=== PATIENT | male | born 1970 | race Caucasian/White ===

== ENCOUNTER 2016-04-24 19:34 | Observation (INO) | payer MEDICAID, OTHER ==
[~2016-04-24] VITALS: Ht 180.3 cm; Wt 98.0 kg
[~2016-04-24 19:34] MED LIST: ATORVASTATIN CA80 MG PO; AZULFIDINE500 M1 PO; CARAFATE1 GM PO; COUMADIN7.5 MG PO; DOCUSATE SODIU100 M4 PO; FUROSEMIDE20 MG PO; ISONIAZID300 M1 PO; KLOR-CON M1010 MEQ PO; LASIX80 MG PO; LEVOTHYROXIN0.025 M1 PO; NORCO 10/325 MG1 TAB PO; NORCO 325 MG-51 TAB PO; PREDNISONE20 M1 PO; RANITIDINE 150150 MG PO; SYNTHROID0.025 MG PO
[2016-04-24 19:36] VITALS: BP 119/79
--- NOTE | 2016-04-24 21:09 | NUR ---
PT TAKEN TO BED 3
--- NOTE | 2016-04-24 21:21 | NUR ---
Dr. Keane evaluating patient at bedside.
[2016-04-24] MEDS ORDERED: LORazepam 2 MG/ML VIAL IVP ONE (21:30)
[2016-04-24] MEDS ORDERED: ASPIRIN 81 MG TAB.CHEW PO ONE (21:30)
[2016-04-24] MEDS ORDERED: NACL 0.9% 1,000 ML IV ONE (21:30)
--- NOTE | 2016-04-24 21:30 | NUR ---
PATIENT PRESENTS TO ED WITH CHEST PAIN X3DAYS . PT STATES THE PAIN DOES NOT RADIATE ANYWHERE . DENIES VOMITING; SKIN IS PINK/WARM/DRY; AAOX4 WITH EVEN AND STEADY GAIT; LUNGS CLEAR BL; HR SINUS TACHY; PT DENIES ANY FEVER, SOB, OR COUGH AT THIS TIME; PATIENT STATES PAIN OF 8/10 AT THIS TIME; VSS; PATIENT POSITIONED FOR COMFORT; HOB ELEVATED; BEDRAILS UP X2; BED DOWN. ER MD MADE AWARE OF PT STATUS.
--- NOTE | 2016-04-24 21:48 | NUR ---
X-Ray at bedside.
--- NOTE | 2016-04-24 22:40 | NUR ---
PT REFUSING TO GIVE URINE SAMPLE AND REFUSING STRAIGHT CATHETERIZATION
[2016-04-24] MEDS ORDERED: HYDROcodone/APAP 5/325 MG 1 TAB TAB PO PRN (22:45)
[2016-04-24] MEDS ORDERED: ALBUTEROL 0.083% 2.5 MG/3 ML NEBU INH PRN (22:45)
[2016-04-24] MEDS ORDERED: FUROSEMIDE 40 MG/4 ML VIAL IVP ONE (22:45)
[2016-04-24] MEDS ORDERED: ONDANSETRON 4 MG/2 ML VIAL IVP PRN (22:45)
[2016-04-24] MEDS ORDERED: LORazepam 2 MG/ML VIAL IVP PRN (22:45)
--- NOTE | 2016-04-24 23:34 | NUR ---
Patient will be admitted to care of DR. HEATH AND DR. ALAMO. Admited to TELE. Will go to room 106A. Belongings list completed. Report to PENNY BRICEÑO. TRANSFER OF CARE AT THIS TIME
--- NOTE | 2016-04-24 23:40 | NUR ---
ADMITTED 45 YEAR OLD PT FROM ER. PT AOX4. PT HAS IV TO LEFT WRIST 20G; ASYMPTOMATIC, PATENT AND INTACT. PT UNCOOPERATIVE. PT REFUSES TO GIVE URINE SAMPLE. PT REFUSES SCDS. PT HAS A HOUSE ARREST ALARM ON LEFT FOOT. PT'S SKIN IS INTACT. PT'S VS ARE STABLE. HEART MONITOR ATTACHED TO PT. ORIENTED PT TO ROOM AND SURROUNDINGS AND USE OF CALL LIGHT. EXPLAINED PLAN OF CARE TO PT. CALL LIGHT WITHIN REACH. WILL CONTINUE TO MONITOR PT.
[2016-04-25] VITALS: BP 117/76
--- NOTE | 2016-04-25 00:20 | NUR ---
URINE AND MRSA COLLECTED AND SENT TO LAB, WILL CONTINUE TO MONITOR PT.
--- NOTE | 2016-04-25 00:35 | NUR ---
CALLED DR. CALLY BANUELOS WHO IS COVERING FOR DR. HEATH TO NOTIFY HIM OF PT REQUESTING MORPHINE FOR PAIN. DR. ALAMO GAVE ME ORDERS FOR MORPHINE 2 MG IVP Q6H FOR MODERATED PAIN. WILL FOLLOW UP ON ORDERS.
[2016-04-25] MEDS ORDERED: MORPHINE SULFATE 2 MG/ML SYR IVP PRN (00:40)
--- NOTE | 2016-04-25 01:15 | NUR ---
CHARGE MANAGER AT BEDSIDE TO DRAW BLOOD BUT PT REFUSES. WILL CONTINUE TO MONITOR PT.
--- NOTE | 2016-04-25 01:57 | NUR ---
PT STILL REFUSES IV FLUIDS AT THIS TIME. DR. CALLY BANUELOS AWARE. WILL CONTINUE TO MONITOR PT.
--- NOTE | 2016-04-25 03:16 | NUR ---
PT ACCEPTED TO GET CONNECTED TO IV FLUIDS. CALL LIGHT WITHIN REACH.
--- NOTE | 2016-04-25 03:17 | NUR ---
PT COMPLAINING OF CHEST PAIN 09/20; VS STABLE, WILL MEDICATE ORDERED.
[2016-04-25 04:20] VITALS: BP 117/78
--- NOTE | 2016-04-25 04:25 | NUR ---
SWISS TYPE SCREW MACHINE OPERATOR AT BEDSIDE TO DRAW BLOOD, BUT AGAIN PT REFUSED. WILL CONTINUE TO MONITOR PT.
--- NOTE | 2016-04-25 06:30 | NUR ---
BINDERY MACHINE FEEDER OFFBEARER AT BEDSIDE TO DRAW LABS/TROPONIN, BUT PT REFUSES.
--- NOTE | 2016-04-25 07:15 | NUR ---
RECEIVED CRITICAL LAB VALUE K 2.9. DR. HEATH NOTIFIED; IN TO SEE PT.
--- NOTE | 2016-04-25 07:30 | NUR ---
ENDORSED PT IN STABLE CONDITION TO RN RAMIREZ FOR CONTINUITY OF CARE.
--- NOTE | 2016-04-25 07:40 | NUR ---
RECEIVED REPORT FROM THE RIP/MOULD OPERATOR NURSE NAVARRO AT BEDSIDE FOR CONTINUITY OF CARE. PATIENT IS AWAKE, ALERT, AND ORIENTEDX4. IV TO LEFT WRIST, ASYMPTOMATIC, PATENT AND INTACT. INITIAL ASSESSMENT DONE. PATIENT HAS A HOUSE ARREST ALARM ON LEFT FOOT. PATIENT SKIN IS INTACT. VITALS TAKEN AND WITHIN THE NORMAL LIMIT. SAFETY MEASURED CHECKED AND WILL CONTINUE TO MONITOR. CALL LIGHT WITHIN REACH.
[2016-04-25 08:00] VITALS: BP 129/98
--- NOTE | 2016-04-25 08:09 | NUR ---
PT ON ROOM AIR SPO2 100%. PT DIMINISHED BILATERALLY BUT REFUSED PRN BREATHING TX. PT NOT SOB AND NOT IN RESPIRATORY DISTRESS AT THIS TIME. WILL CONTINUE TO MONITOR.
[2016-04-25] MEDS ORDERED: KCL 20 MEQ/WATER INJ PREMIX 100 ML IV SCH (08:26)
[2016-04-25] MEDS ORDERED: POTASSIUM CHLORIDE 10 MEQ TABER PO SCH (08:26)
[2016-04-25] MEDS ORDERED: LEVOTHYROXINE 0.025 MG TAB PO SCH (08:47)
[2016-04-25] MEDS: ENOXAPARIN 40 MG/0.4 ML SYR SUBQ SCH (08:48)
[2016-04-25] MEDS: FUROSEMIDE 40 MG/4 ML VIAL IVP SCH ×2 (08:49→17:31)
[2016-04-25] MEDS: ATORVASTATIN 80 MG TAB PO SCH (08:50)
[2016-04-25] MEDS: ASPIRIN 81 MG TAB.CHEW PO SCH (08:50)
[2016-04-25] MEDS: ISONIAZID 100 MG TAB PO SCH (08:50)
[2016-04-25] MEDS ORDERED: FUROSEMIDE 40 MG/4 ML VIAL IVP SCH (09:00)
--- NOTE | 2016-04-25 09:00 | NUR ---
PATIENT REFUSED THE POTASSIUM IV, DESPITE DECREASE THE RATE, PATIENT CONTINUE TO DISCONNECT HIMSELF FROM THE IV, DR. RAMOS AWARE.
[2016-04-25] MEDS: HYDROmorphone 1 MG/ML AMP IVP PRN ×3 (09:06→21:49)
--- NOTE | 2016-04-25 10:00 | NUR ---
PATIENT IS ASLEEP, NO S/S OF DISTRESS WILL CONTINUE TO MONITOR.
[2016-04-25] MEDS: PYRIDOXINE 50 MG TAB PO SCH (10:13)
[2016-04-25] MEDS: POTASSIUM CHLORIDE 10 MEQ TABER PO SCH (10:13)
[2016-04-25 12:00] VITALS: BP 104/69
--- NOTE | 2016-04-25 12:00 | NUR ---
VITALS TAKEN AND WITHIN THE NORMAL LIMIT WILL CONTINUE TO MONITOR.
[2016-04-25] MEDS ORDERED: MAG SULF 2000 MG/WATER PREMIX 50 ML IV SCH (13:00)
--- NOTE | 2016-04-25 13:30 | NUR ---
PATIENT REFUSED THE MAG SULF BECAUSE HE STATE IT BURNED TRIED TO DECREASE RATE BUT PATIENT REFUSED AND STATE " WHY ARE YOU DOING THIS TO ME, I REFUSED". PATIENT IS VERY UNCOOPERATIVE.
--- NOTE | 2016-04-25 14:00 | NUR ---
PAGET DR. ONOFRE TO INFORM HIM OF PATIENT REFUSED MG. WAITING FOR CALL BACK.
--- NOTE | 2016-04-25 14:53 | NUR ---
PATIENT IS ASLEEP NO S/S OF DISTRESS. WILL CONTINUE TO MONITOR.
[2016-04-25 16:00] VITALS: BP 122/86
--- NOTE | 2016-04-25 19:35 | NUR ---
REPORT GIVEN TO BAG CUTTER NURSE FOR CONTINUITY OF CARE AT BEDSIDE. PATIENT IN STABLE CONDITION AND ALL NEED MET AT THIS TIME.
--- NOTE | 2016-04-25 19:40 | NUR ---
PT IS CURRENTLY AWAKE ALERT ORIENTED RESTING IN BED WATCHING TV AND SMILING PT STATES,"IM FINE AT THIS TIME."PATIENT IS CURRENTLY WITH HIS SIGNIFICANT OTHER AT BEDSIDE TALKING SHE ATTENDS TO ALL HIS NEEDS.CALL LIGHT WITHIN REACH WILL CONTINUE TO MONITOR.
--- NOTE | 2016-04-25 19:58 | NUR ---
Patient's Plan of Care was discussed and reviewed with SCIENTIFIC DATABASE CURATOR: PAULINO MELCHOR
[2016-04-25 20:00] VITALS: BP 110/76
--- NOTE | 2016-04-25 21:30 | NUR ---
PT IS GOING TO TAKE A SHOWER STATES,"I WILL HELP HIM,HE WANTS ME TO STAY WITH HIM AND HELP HIM I WILL WATCH HIM." PT HAS A BLACK BRACELET NOTED TO HIS LT ANKLE PT STATES HE NEEDS TO HAVE IT AND CANNOT REMOVE IT BECAUSE THE POLICE WILL TRACK HIM DOWN PT SAYS HE CAN SHOWER WITH IT.PT STATES BEFORE GOING TO THE SHOWER PT STATES HE IS IN PAIN AND WANTS TO RECEIVE HIS ATIVAN FOR ANXIETY AND HIS PAIN MEDICATION DILAUDID WELL.PENNY MCHUGH AWARE SHE WILL MEDICATE THE PATIENT.
--- NOTE | 2016-04-25 21:47 | NUR ---
PT TOOK A SHOWER IS NOW BACK IN BED AND HAS BEEN MEDICATED WITH ATIVAN FOR ANXIETY BY PENNY MCHUGH AND WILL ALSO BE MEDICATED WITH DILAUDID FOR PAIN.WILL CONTINUE TO MONITOR.
--- NOTE | 2016-04-25 23:25 | NUR ---
PER ASSISTANT PRODUCTION MANAGER ERIKA SORIA REFUSED TO BE DRAWN AT THIS TIME SHE SAID SHE WILL TRY AGAIN LATER.
--- NOTE | 2016-04-25 23:26 | NUR ---
I WENT TO THE ROOM AND EXPLAINED TO THE PATIENT THAT HE NEEDS TO HAVE LABS DRAWN PT TURNED HIS HEAD THE OPPOSITE WAY AND SAID,"NO NOT RIGHT NOW AND WENT BACK TO SLEEP." PT NON COMPLAINT.
[2016-04-26] VITALS: BP 108/65
[2016-04-26] MEDS: HYDROmorphone 1 MG/ML AMP IVP PRN ×3 (02:03→13:46)
--- NOTE | 2016-04-26 02:30 | NUR ---
PT SLEEPING IN BED SNORING.WILL CONTINUE TO MONITOR.CALL LIGHT WITHIN REACH.
[2016-04-26 04:13] VITALS: BP 119/84
--- NOTE | 2016-04-26 04:40 | NUR ---
PT IS CURRENTLY AWAKE AND VERY DROWSY ASKING CONSTANTLY FOR PAIN MEDICATION DILAUDID AND TOOK OFF HIS TELEMONITOR AND ATTEMPTED TO GET OUT OF BED WITH WALK IS VERY UNSTABLE AND CLUMSY AND KNOCKED OVER HIS SODA ON THE FLOOR AND ALL HIS LINEN AND BLANKETS ARE ON THE FLOOR WELL.PT HAS NO GOWN ON AND IS SAYING THAT HE IS COLD.PT LINEN GOT WET ON THE FLOOR FROM THE SPILLED SODA.PT WAS GIVEN CLEAN LINEN AND GOWN AND HE AGREED TO HAVE TELEMONITOR PLACED BACK.PT WAS GIVEN A SANDWICH EARLIER AND JUICE AND HE SAID HE IS GOING TO EAT IT.THEN PT FELL BACK ASLEEP.WILL CONTINUE TO MONITOR SIGNIFICANT AT BEDSIDE WITH THE PATIENT.
[2016-04-26] MEDS ORDERED: LEVOTHYROXINE 0.025 MG TAB PO SCH (06:30)
--- NOTE | 2016-04-26 06:52 | NUR ---
PT STABLE RESTING IN BED IN NO DISTRESS WILL CONTINUE TO MONITOR.
[2016-04-26] MEDS ORDERED: predniSONE 20 MG TAB PO SCH (07:00)
--- NOTE | 2016-04-26 07:25 | NUR ---
PT STABLE REPORT ENDORSED TO PENNY CHOI HE WILL RESUME CARE OF THE PATIENT.
--- NOTE | 2016-04-26 07:26 | NUR ---
RECEIVED REPORT FROM THE MANAGER NON PROFIT PAULINO BOURNE AT BEDSIDE FOR CONTINUITY OF CARE. PATIENT APPEARED TO BE CALM AWAKE, ALERT AND RESTING WELL IN BED. AAOX4. NO SOB OR SIGN OF RESPIRATORY DISTRESS NOTED AT THIS TIME. INITIAL ASSESSMENT DONE. SKIN INTACT. PATIENT HAS IV TO LEFT WRIST SL, ASYMPTOMATIC, PATENT AND INTACT. PATIENT HAS A HOUSE ARREST ALARM ON LEFT FOOT. VITALS TAKEN AND WITHIN THE NORMAL LIMIT. PLAN OF CARE AND PAIN MANAGEMENT DISCUSSED, PATIENT VERBALIZED UNDERSTANDING. SAFETY MEASURED CHECKED AND WILL CONTINUE TO MONITOR. CALL LIGHT WITHIN REACH.
[2016-04-26 08:00] VITALS: BP 106/72
[2016-04-26] MEDS: ISONIAZID 100 MG TAB PO SCH (08:26)
[2016-04-26] MEDS: PYRIDOXINE 50 MG TAB PO SCH (08:26)
[2016-04-26] MEDS: POTASSIUM CHLORIDE 10 MEQ TABER PO SCH (08:26)
[2016-04-26] MEDS: ASPIRIN 81 MG TAB.CHEW PO SCH (08:26)
[2016-04-26] MEDS: ATORVASTATIN 80 MG TAB PO SCH (08:26)
[2016-04-26] MEDS: FUROSEMIDE 40 MG/4 ML VIAL IVP SCH (08:33)
[2016-04-26] MEDS: ENOXAPARIN 40 MG/0.4 ML SYR SUBQ SCH (08:39)
--- NOTE | 2016-04-26 08:45 | NUR ---
MORNING DUE MEDICATIONS WITH TEACHING GIVEN AND DILAUDID IVP FOR GENERALIZED PAIN 10/10. PATIENT TOLERATED WELL AND VERBALIZED UNDERSTANDING. NO SIGN OF DISTRESS NOTED. PATIENT'S AT BEDSIDE. ALL NEEDS ARE MET. CALL LIGHT WITHIN REACH. WILL CONTINUE TO MONITOR.
--- NOTE | 2016-04-26 09:07 | NUR ---
PATIENT HAS BEEN SCREENED AND CATEGORIZED MODERATE NUTRITION RISK. PATIENT WILL BE SEEN WITHIN 3-5 DAYS OF ADMISSION. 04/27/16-04/29/[address]
[2016-04-26 12:00] VITALS: BP 127/92
--- NOTE | 2016-04-26 12:13 | NUR ---
PATIENT AWAKE SITING AND RESTING WELL IN BED. NO SIGN OF DISTRESS NOTED AT THIS TIME. NO C/O OF DISCOMFORT. AT BEDSIDE WITH PATIENT. CALL LIGHT WITHIN REACH. WILL CONTINUE TO MONITOR.
--- NOTE | 2016-04-26 13:49 | NUR ---
PATIENT REQUESTED MEDICATION FOR GENERALIZED PAIN 10/21. IVP DILAUDID 1MG GIVEN. PATIENT TOLERATED WELL. NO SIGN OF DISTRESS NOTED. AT BEDSIDE. SAFETY MEASURES GIVEN. CALL LIGHT WITHIN REACH. WILL CONTINUE TO MONITOR.
--- NOTE | 2016-04-26 14:47 | NUR ---
DR HEATH IS HERE TO SEE PATIENT AND MD AWARE PATIENT'S ABNORMAL LAB VALUE. POTASSIUM 3.2, MAG 1.6.
[2016-04-26] MEDS ORDERED: MAG SULF 2000 MG/WATER PREMIX 50 ML IV SCH (15:32)
[2016-04-26] MEDS ORDERED: POTASSIUM CHLORIDE 10 MEQ TABER PO SCH (15:33)
--- NOTE | 2016-04-26 15:46 | NUR ---
PATIENT REFUSED TO HAVE MAGNESIUM IVPB INFUSING AT THIS TIME. RISKS AND BENEFITS EXPLAINED AND PATIENT STILL REFUSED, DR HEATH NOTIFIED AND AWARE.
[2016-04-26 16:00] VITALS: BP 127/92
--- NOTE | 2016-04-26 16:24 | NUR ---
ALL DISCHARGE PAPERS SIGNED BY PATIENT. ALL DISCHARGE MEDICATION PRESCRIPTIONS AND FOLLOW UP WITH PCP WITHIN 1 WEEK OF DISCHARGE INSTRUCTIONS GIVEN, PATIENT AND VERBALIZED UNDERSTANDING. ALL IV'S ID BANDS AND TELE MONITOR REMOVED. PATIENT WILL BE DISCHARGED HOME SELF CARE VIA PRIVATE VEHICLE. PATIENT LEFT THE HOSPITAL IN STABLE CONDITION. SKIN INTACT. DENIED ANY PAIN OR DISCOMFORT. DENIED N/V. AMBULATORY. ALL BELONGINGS WITH PATIENT.
[2016-05-26] MEDS ORDERED: RANITIDINE 150150 MG PO (21:10)
[2016-05-26] MEDS ORDERED: MAG-OX400 MG GT (21:10)
[2016-05-28] MEDS ORDERED: LASIX40 MG PO (16:42)
== END 2016-04-26 16:25 | disposition home or self-care (01) ==
LOC: MED 19:34 → MTU 22:51
PROVIDERS: ADMIT Internal Medicine Pulmonary Disease; ATTEND Internal Medicine Pulmonary Disease
DX: I50.23 Acute on chronic systolic (congestive) heart failure (principal); F15.10 Other stimulant abuse, uncomplicated; K50.90 Crohn's disease, unspecified, without complications; E03.9 Hypothyroidism, unspecified; I42.9 Cardiomyopathy, unspecified; I11.0 Hypertensive heart disease with heart failure; E83.42 Hypomagnesemia; E87.6 Hypokalemia; F17.210 Nicotine dependence, cigarettes, uncomplicated; K21.9 Gastro-esophageal reflux disease without esophagitis; R76.11 Nonspecific reaction to tuberculin skin test without active tuberculosis
CPT/HCPCS: 36415; 71010; 80048; 80053; 80305; 82550; 82553; 83735; 83880; 84100; 84484; 85025; 85610; 85730; 87081; 93005; 94664; 94760; 96361; 96365; 96366; 96372; 96375; 96376; 99285; C1758; G0378; J1170; J1650; J1940; J2060; J2270; J3475; J3480; J7030; J7512; Q0092

== ENCOUNTER 2016-05-01 08:46 | Inpatient (IN) | payer OTHER ==
[~2016-05-01] VITALS: Ht 180.3 cm; Wt 89.8 kg
--- NOTE | 2016-05-01 08:49 | NUR ---
Patient ambulated to bed 2. RN evaluating patient while EKG is completed at bedside.
[2016-05-01 08:51] VITALS: BP 129/88
[2016-05-01] MEDS ORDERED: NACL 0.9% 500 ML IV ONE (08:55)
[2016-05-01] MEDS ORDERED: ASPIRIN 81 MG TAB.CHEW PO ONE (08:55)
--- NOTE | 2016-05-01 09:13 | NUR ---
PT PRESENTS TO ER W/C/O CHEST PAIN SINCE YESTERDAY AT 1700. HX CROHN'S, HYPOTHYROIDISM, CHF. PT STATES HE HAD 3 WA'S 8 YEARS AGO. DENIES V/D SKIN IS PINK/WARM/DRY; AAOX4 WITH EVEN AND STEADY GAIT; LUNGS CLEAR BL; HR EVEN AND REGULAR; PT DENIES ANY FEVER AT THIS TIME; PATIENT STATES PAIN OF 10/10 AT THIS TIME; VSS; PATIENT POSITIONED FOR COMFORT; HOB ELEVATED; BEDRAILS UP X2; BED DOWN. ER MD MADE AWARE OF PT STATUS.
[2016-05-01] MEDS ORDERED: MORPHINE SULFATE 4 MG/ML SYR IVP ONE (09:30)
[2016-05-01] MEDS ORDERED: FUROSEMIDE 40 MG/4 ML VIAL IVP ONE (09:30)
--- NOTE | 2016-05-01 09:45 | NUR ---
PT STATED OF CHEST PAIN GOING DOWN. PT COMFORTABLE, BREATHING NORMALLY.
--- NOTE | 2016-05-01 10:09 | NUR ---
PT REFUSED TO HAVE ORR CATHETER INSERTION, RISKS AND BENEFITS EXPLAINED.
--- NOTE | 2016-05-01 10:29 | NUR ---
PT DIANE, SPOKE WITH HIS DAUGHTER, DENIES PAIN AT THIS TIME.
[2016-05-01] MEDS ORDERED: ENOXAPARIN 40 MG/0.4 ML SYR SUBQ ONE (10:40)
[2016-05-01] MEDS ORDERED: NITROGLYCERIN 2% 1 GM PKT TP ONE (10:40)
--- NOTE | 2016-05-01 10:45 | NUR ---
Patient will be admitted to care of DR. DE LOS SANTOS,Admited to TELE . Will go to room 117. Belongings list completed. Report to PENNY BERUMEN.
--- NOTE | 2016-05-01 11:09 | NUR ---
TRANSFFERED PT TO [place] RN AT BEDSIDE.
[2016-05-01 11:15] VITALS: BP 125/87
--- NOTE | 2016-05-01 11:15 | NUR ---
ADMITTED 45 YEAR OLD MALE FROM ER [facility]IA [facility] WITH A DX OF ACUTE CORONARY SYNDROME. PT IS AMBULATORY, AAO X4, SKIN INTACT, IV ON LEFT AC FLUSHED PATENT AND INTACT, VITALS STABLE, NO S/S OF RESPIRATORY DISTRESS OR DISCOMFORT AT THIS TIME. ORIENTED PT IN THE ROOM AND USE OF CALL LIGHT, MRSA COLLECTED, SAFETY/FALL PRECAUTION ENFORCED, CALL LIGHT WITHIN REACH, WILL CONTINUE TO MONITOR.
[2016-05-01 12:00] VITALS: BP 123/88
[2016-05-01] MEDS ORDERED: PNEUMOCOCCAL VACCINE 23 MCG/0.5 ML VIAL IMVAC SCH (12:00)
--- NOTE | 2016-05-01 12:06 | NUR ---
PATIENT HAS BEEN SCREENED AND CATEGORIZED MODERATE NUTRITION RISK. PATIENT WILL BE SEEN WITHIN 3-5 DAYS OF ADMISSION. 05/04/16 - 05/06/16 [facility]; [place], RD
[2016-05-01] MEDS ORDERED: ACETAMINOPHEN 325 MG TAB PO PRN (12:20)
[2016-05-01] MEDS ORDERED: ONDANSETRON 4 MG/2 ML VIAL IVP PRN (12:20)
[2016-05-01] MEDS ORDERED: ALBUTEROL 0.083% 2.5 MG/3 ML NEBU INH PRN (12:20)
[2016-05-01] MEDS: MORPHINE SULFATE 2 MG/ML SYR IVP PRN ×3 (13:01→20:45)
[2016-05-01] MEDS: IPRATROPIUM 0.02% 0.5 MG/2.5 ML NEBU INH SCH ×2 (13:04→19:36)
[2016-05-01] MEDS: ALBUTEROL 0.083% 2.5 MG/3 ML NEBU INH SCH ×2 (13:05→19:36)
--- NOTE | 2016-05-01 13:15 | NUR ---
RT AT BEDSIDE GIVING BREATHING TX, PT COMPLAIN OF 9/10 CHEST PAIN, PRN MORPHINE GIVEN, CALL LIGHT WITHIN REACH, WILL CONTINUE TO MONITOR.
--- NOTE | 2016-05-01 15:05 | NUR ---
PT IS SLEEPING AT THIS TIME, NO S/S OF RESPIRATORY DISTRESS OR DISCOMFORT NOTED, CALL LIGHT WITHIN REACH, WILL CONTINUE TO MONITOR.
[2016-05-01 16:00] VITALS: BP 128/88
--- NOTE | 2016-05-01 17:50 | NUR ---
PT IS RESTING ON BED WATCHING TV, NO S/S OF RESPIRATORY DISTRESS OR DISCOMFORT NOTED, ALL NEEDS MET AT THIS TIME, CALL LIGHT WITHIN REACH, WILL CONTINUE TO MONITOR.
--- NOTE | 2016-05-01 19:11 | NUR ---
RECEIVED PT REPORT FROM ATA FRANCIS AT BEDSIDE FOR PT CONTINUITY OF CARE. PT NOTED STABLE, NO S/S OF DISTRESS.
--- NOTE | 2016-05-01 19:12 | NUR ---
ENDORSED PT TO PENNY GAFFNEY FOR CONTINUITY OF CARE. PT IS STABLE AT THIS TIME.
--- NOTE | 2016-05-01 19:40 | NUR ---
PT RECEIVING BREATHING TREATMENT AT THIS TIME. NO ACUTE RESPIRATORY DISTRESS NOTED.
[2016-05-01 20:00] VITALS: BP 133/93
--- NOTE | 2016-05-01 20:00 | NUR ---
PER RT AT PT BEDSIDE, PT IS REQUESTING TO BE NOT FULL CODE.
--- NOTE | 2016-05-01 20:04 | NUR ---
SHIFT ASSESSMENT AT THIS TIME. PT IS A/O X3. VS ARE STABLE, PT ON ROOM AIR WITH OXYGEN SATURATION AT 97%, PT STATES TO FEEL SOB. PLACED PT ON 2L NASAL CANNULA, NOTED OXYGEN SATURATION AT 99%. BP IS 133/93, HR 115, TEMP 98.5F, RR 24, AND PT C.O. PAIN /. WILL SEE MEDICATION eMAR FOR PAIN MEDICATION. LUNG SOUNDS ARE DIMINISHED, BOWEL SOUND ACTIVE. SKIN IS INTACT. PT HAS IV ACCESS TO LEFT AC #22G, PATENT AND INTACT. PER RT EARLIER DISCUSSED PT WITH CODE STATUS, PT CHANGED HIS MIND AT THIS TIME, STILL WANTS TO REMAIN FULL CODE. DISCUSSED WITH PT PLAN OF CARE, ABLE TO VERBALIZE UNDERSTANDING. CALL LIGHT WITHIN REACH. WILL MONITOR CLOSELY. SAFETY PRECAUTIONS ARE IMPLEMENTED. PT FAMILY MEMBER AT BEDSIDE. CALL LIGHT WITHIN EASY REACH.
--- NOTE | 2016-05-01 20:15 | NUR ---
NOTIFIED TELE MONITOR PT HAS HX OF PREVIOUS BLUE CODES, WILL KEEP CLOSE EYE ON PT.
[2016-05-01] MEDS: CARVEDILOL 3.125 MG TAB PO SCH (20:46)
[2016-05-01] MEDS ORDERED: SIMVASTATIN 20 MG TAB PO SCH (21:00)
[2016-05-01] MEDS ORDERED: SIMVASTATIN 40 MG TAB PO SCH (21:00)
--- NOTE | 2016-05-01 23:27 | NUR ---
PT SITTING UP IN BED DANGLING FEET. NO ACUTE RESPIRATORY DISTRESS, PT REMOVED NASAL CANNULA. ATTEMPT TO PUT BACK ON, PT REFUSED. CHECK OXYGEN SATURATION AT THIS TIME, NOTED AT 97% ON ROOM AIR.
[2016-05-02] VITALS (7 sets, daily range): BP systolic 105–129; BP diastolic 61–96
[2016-05-02] MEDS: ZOLPIDEM 5 MG TAB PO PRN (00:07)
--- NOTE | 2016-05-02 00:07 | NUR ---
PROVIDED PT WITH SLEEPING MEDICATION PER REQUEST, PER PT UNABLE TO SLEEP. VS REMAIN STABLE. OXYGEN SATURATION AT 98% ON ROOM AIR, PT STILL REFUSES NASAL CANNULA. NO ACUTE DISTRESS NOTED.
[2016-05-02] MEDS: ALBUTEROL 0.083% 2.5 MG/3 ML NEBU INH SCH ×4 (01:00→19:00)
[2016-05-02] MEDS: IPRATROPIUM 0.02% 0.5 MG/2.5 ML NEBU INH SCH ×4 (01:00→19:00)
--- NOTE | 2016-05-02 01:20 | NUR ---
PT NOTED SLEEPING, NO ACUTE DISTRESS OR RESPIRATORY DISTRESS.
--- NOTE | 2016-05-02 01:23 | NUR ---
0105 PT IS SLEEPING. RN GAVE AMBIEN FOR SLEEP. RN WILL CALL IF PT WANTS AN HHNTX
--- NOTE | 2016-05-02 01:48 | NUR ---
PT REMAINS ASLEEP, NO RESPIRATORY DISTRESS NOTED. CALL LIGHT WITHIN REACH.
[2016-05-02] MEDS: MORPHINE SULFATE 2 MG/ML SYR IVP PRN ×5 (03:57→21:20)
--- NOTE | 2016-05-02 03:57 | NUR ---
VSS, PT STILL REFUSING NASAL CANNULA, O2 SAT IS 100% ON ROOM AIR. WILL PROVIDE PT WITH PAIN MEDICATION.
[2016-05-02] MEDS: LEVOTHYROXINE 0.025 MG TAB PO SCH (05:51)
[2016-05-02] MEDS: predniSONE 20 MG TAB PO SCH (05:51)
--- NOTE | 2016-05-02 05:51 | NUR ---
PT ABLE TO WAKE UP AND TAKE AM MEDICATION. NO DISTRESS OR RESPIRATORY DISTRESS NOTED.
--- NOTE | 2016-05-02 07:02 | NUR ---
ENDORSED PT TO ATA RN IN STABLE CONDITION FOR CONTINUITY OF CARE.
--- NOTE | 2016-05-02 07:05 | NUR ---
RECEIVED REPORT FROM PENNY GAFFNEY. PT IS AWAKE, SITTING AT THE EDGE OF THE BED WATCHING TV AAOX4, SKIN INTACT, IV ON LEFT AC, FLUSHED PATENT AND INTACT, ON SALINE LOCK, INITIAL ASSESSMENT DONE, NO S/S OF RESPIRATORY DISTRESS NOTED, PT COMPLAIN OF CHEST PAIN, WILL ADMINISTER PRN PAIN MEDICATION, DISCUSSED PLAN OF CARE, PT VERBALIZED UNDERSTANDING, SAFETY/FALL PRECAUTION ENFORCED, CALL LIGHT WITHIN REACH, WILL CONTINUE TO MONITOR.
--- NOTE | 2016-05-02 07:07 | NUR ---
RECEIVED PT CRITICAL LAB FOR POTASSIUM IS 2.9, DR. DE LOS SANTOS PAGED AT THIS TIME TO NOTIFY
--- NOTE | 2016-05-02 07:09 | NUR ---
DR. DE LOS SANTOS AWARE OF PT POTASSIUM 2.9, NEW ORDER RECEIVED.
[2016-05-02] MEDS: CARVEDILOL 3.125 MG TAB PO SCH ×2 (08:24→21:21)
[2016-05-02] MEDS: ASPIRIN 325 MG TAB PO SCH (08:25)
[2016-05-02] MEDS: ATORVASTATIN 80 MG TAB PO SCH (08:25)
[2016-05-02] MEDS: FUROSEMIDE 40 MG/4 ML VIAL IVP SCH (08:26)
[2016-05-02] MEDS: ENOXAPARIN 40 MG/0.4 ML SYR SUBQ SCH (08:27)
--- NOTE | 2016-05-02 08:30 | NUR ---
DUE MEDS GIVEN, PT TOLERATED WELL, CALL LIGHT WITHIN REACH. WILL CONTINUE TO MONITOR.
[2016-05-02] MEDS ORDERED: POTASSIUM CHLORIDE 10 MEQ TABER PO SCH ×2 (09:00→13:00)
--- NOTE | 2016-05-02 09:08 | NUR ---
PT COMPLAINED 8/10 CHEST PAIN. PRN MORPHINE GIVEN. NO S/S OF RESPIRATORY DISTRESS NOTED. WILL REASSESS, CALL LIGHT WITHIN REACH. WILL CONTINUE TO MONITOR.
--- NOTE | 2016-05-02 10:09 | NUR ---
PT REFUSES TO WEAR OXYGEN
--- NOTE | 2016-05-02 11:54 | NUR ---
PT IS AT RESTROOM AT THIS TIME, ALL NEEDS MET, NO S/S OF RESPIRATORY DISTRESS OR DISCOMFORT NOTED, WILL CONTINUE TO MONITOR.
--- NOTE | 2016-05-02 13:00 | NUR ---
PT REFUSES [facility] WANTS PAIN MEDS RN ATA INFORMED Addendum: 05/02/16 at 1305 by Maye Henry RT OLACED 3L KieraC PT REMOVED Addendum: 05/02/16 at 1306 by Maye Henry RT PLACED
--- NOTE | 2016-05-02 13:11 | NUR ---
PT COMPLAIN OF 8/10 CHEST AND ABDOMINAL PAIN, PRN MORPHINE GIVEN ORDERED. WILL REASSESS, NO S/S OF RESPIRATORY DISTRESS NOTED, CALL LIGHT WITHIN REACH, WILL CONTINUE TO MONITOR.
--- NOTE | 2016-05-02 15:37 | NUR ---
PT IS AWAKE, SITTING AT THE EDGE OF THE BED USING HIS CELL PHONE. NO S/S OF RESPIRATORY DISTRESS, CALL LIGHT WITHIN REACH. WILL CONTINUE TO MONITOR
--- NOTE | 2016-05-02 17:38 | NUR ---
PT COMPLAINED 9/10 CHEST PAIN, MORPHINE WAS GIVEN ORDERED. WILL REASSESS, NO S/S OF RESPIRATORY DISTRESS NOTED, CALL LIGHT WITHIN REACH. WILL CONTINUE TO MONITOR.
--- NOTE | 2016-05-02 19:10 | NUR ---
PT WAS ENDORSED TO RN. TAYO FOR CONTINUITY OF CARE IN STABLE CONDITION.
--- NOTE | 2016-05-02 19:15 | NUR ---
RECEIVED PT FROM BRANDT FRANCIS PT IS AAOX4 AMBULATORY ON TELEMETRY SR BBB AAO FOR ALL OVER HIS BODY, HL ON LEFT AC PATENT INITIAL ASSESSMENT DONE
--- NOTE | 2016-05-02 22:00 | NUR ---
AFTER PAIN MEDIC GIVEN PT WATCH TV DENIES ANY PAIN. ON TELEMETRY SR BBB
[2016-05-03] VITALS: BP 102/74
--- NOTE | 2016-05-03 | NUR ---
PT A ASK FOR FOOD TO EAT HE IS ASSISTED
[2016-05-03] MEDS: ZOLPIDEM 5 MG TAB PO PRN (00:40)
[2016-05-03] MEDS: IPRATROPIUM 0.02% 0.5 MG/2.5 ML NEBU INH SCH ×2 (01:00→07:00)
[2016-05-03] MEDS: MORPHINE SULFATE 2 MG/ML SYR IVP PRN ×3 (01:19→09:50)
--- NOTE | 2016-05-03 01:30 | NUR ---
PT SLEEPING QUIET NOT DISTRESS NOTED ON TELEMETRY SR BBB
[2016-05-03 04:00] VITALS: BP 117/76
--- NOTE | 2016-05-03 04:00 | NUR ---
SPONGE BATH GIVEN , LINEN CHANGED ON TELEMETRY SR SLEEPING ON AND OFF
[2016-05-03] MEDS: LEVOTHYROXINE 0.025 MG TAB PO SCH (05:12)
[2016-05-03] MEDS: predniSONE 20 MG TAB PO SCH (05:12)
--- NOTE | 2016-05-03 06:00 | NUR ---
AFTERKPAIN MEDIC GIVEN PT SLEEP QUIET NOT DISTRESS NOTED
[2016-05-03] MEDS: ALBUTEROL 0.083% 2.5 MG/3 ML NEBU INH SCH (07:00)
--- NOTE | 2016-05-03 07:00 | NUR ---
PT HAS REFUSED BREATHING TX B\S ARE CLEAR AND NO SIGNS OF DISTRESS NOTED AT THIS TIME, RN TAYO NOTIFIED. PT WANTS TO EAT.
--- NOTE | 2016-05-03 07:06 | NUR ---
ASSUMED CONTINUITY OF CARE. NO SIGNS AND SYMPTOMS OF ACUTE DISTRESS NOTED. INITIAL ASSESSMENT DONE. NON-COMPLIANT. REFUSED O2 VIA NC AND MOST OF THE TIME OFF FROM SERVICE DIRECTOR. KEEP COMFORTABLE ON BED. EXPLAINED DIAGNOSIS, PLAN OF CARE, PAIN MANAGEMENT TEACHING, USE OF CALL LIGHT/BED/TV/BATHROOM. VERBALIZED UNDERSTANDING. CALL LIGHT WITHIN REACH.
[2016-05-03 08:00] VITALS: BP 107/72
--- NOTE | 2016-05-03 08:56 | NUR ---
DR. DE LOS SANTOS CAME, INFORMED THAT PT. NON-COMPLIANT, REFUSED AM BLOOD DRAW AND REFUSED MOST OF THE TIME TELEMETRY MONITORING.
[2016-05-03] MEDS: CARVEDILOL 3.125 MG TAB PO SCH (09:00)
[2016-05-03] MEDS: FUROSEMIDE 40 MG/4 ML VIAL IVP SCH (09:00)
--- NOTE | 2016-05-03 09:10 | NUR ---
Patient's Plan of Care was discussed and reviewed with SUPERVISOR AGENCY APPOINTMENTS: RICARDO
[2016-05-03] MEDS ORDERED: CARVEDILOL3.125 MG PO (09:26)
[2016-05-03] MEDS ORDERED: ASPIRIN325 M2 PO (09:26)
[2016-05-03] MEDS ORDERED: K-DUR10 MEQ PO (09:27)
[2016-05-03] MEDS ORDERED: LASIX40 MG PO (09:27)
[2016-05-03 09:30] VITALS: BP 102/74
[2016-05-03] MEDS: ATORVASTATIN 80 MG TAB PO SCH (09:34)
[2016-05-03] MEDS: ASPIRIN 325 MG TAB PO SCH (09:34)
[2016-05-03] MEDS: ENOXAPARIN 40 MG/0.4 ML SYR SUBQ SCH (09:35)
--- NOTE | 2016-05-03 11:45 | NUR ---
REFUSED TO SIGN D/C PAPERS, D/C INSTRUCTIONS AND TEACHING, AND REFUSED MD D/C PRESCRIPTION LIST. LEFT AT THE ROOM BY USING BACKDOOR WITHOUT INFORMING ANY STAFF. PAGED EMERGENCY SERVICE WORKER FOR ASSISTANCE. FOUNDPT. ON PARKING LOT AND PT. WAS ABOUT TO DRIVE OWN VEHICLE. STILL REFUSED TO SIGN D/C PAPERS AND REFUSED TO CHECK IV SITE. INFORMED CHARGE NURSE.
--- NOTE | 2016-05-03 11:48 | NUR ---
PAGED DR. DE LOS SANTOS, NEDA AND SPOKE TO PETRA. LEFT MESSAGE AND CALL BACK NUMBER. INFORMED CHARGE NURSE EDELMIRA SUH -PENNY.
--- NOTE | 2016-05-03 13:00 | NUR ---
CHARGE NURSE EDELMIRA JOHNS CALLED KIRILL DE LOS SANTOS FOR PT. IV SITE VERIFICATION.
--- NOTE | 2016-05-03 15:22 | NUR ---
CM NOTE INITIAL REVIEW SENT TO [facility] FAX# [phone] ATTN: TRISTA # [phone]
--- NOTE | 2016-05-03 16:42 | NUR ---
DR. DE LOS SANTOS CALLED BACK, INFORMED THAT PT. LEFT HOSPITAL WITHOUT SIGNING D/C PAPERS, REFUSED MD D/C PRESCRIPTION LIST, AND REFUSED TO CHECK IV SITE. PER. DR. DE LOS SANTOS PT. WAS LEFT AMA AND NOT D/C. INFORMED CHARGE NURSE EDELMIRA JOHNS.
[2016-05-26] MEDS ORDERED: MAG-OX400 MG GT (21:10)
[2016-05-26] MEDS ORDERED: RANITIDINE 150150 MG PO (21:10)
[2016-05-28] MEDS ORDERED: LASIX40 MG PO (16:42)
== END 2016-05-03 11:45 | disposition left against medical advice (07) | DRG 194 ==
LOC: MED 08:46 → MTU 10:38
PROVIDERS: ADMIT Hospitalist; ATTEND Hospitalist
DX: I13.0 Hypertensive heart and chronic kidney disease with heart failure and stage 1 through stage 4 chronic kidney disease, or unspecified chronic kidney disease (principal); K50.90 Crohn's disease, unspecified, without complications; I24.9 Acute ischemic heart disease, unspecified; I50.23 Acute on chronic systolic (congestive) heart failure; N18.9 Chronic kidney disease, unspecified; E03.9 Hypothyroidism, unspecified; F15.90 Other stimulant use, unspecified, uncomplicated; R76.11 Nonspecific reaction to tuberculin skin test without active tuberculosis; Z53.21 Procedure and treatment not carried out due to patient leaving prior to being seen by health care provider; F17.210 Nicotine dependence, cigarettes, uncomplicated; F12.90 Cannabis use, unspecified, uncomplicated; R74.8 Abnormal levels of other serum enzymes

== ENCOUNTER 2016-05-26 20:56 | Inpatient (IN) | payer OTHER ==
[~2016-05-26] VITALS: Ht 180.3 cm; Wt 88.5 kg
[~2016-05-26 20:56] MED LIST changes: +ASPI325T49 PO; +ATOR80TA27 PO; -ATORVASTATIN CA80 MG PO; -AZULFIDINE500 M1 PO; -CARAFATE1 GM PO; +CARV3.122 PO; -COUMADIN7.5 MG PO; -DOCUSATE SODIU100 M4 PO; +FURO-570 PO; -FUROSEMIDE20 MG PO; -ISONIAZID300 M1 PO; -KLOR-CON M1010 MEQ PO; -LASIX80 MG PO; +LEVO0.0236 PO; -LEVOTHYROXIN0.025 M1 PO; -NORCO 10/325 MG1 TAB PO; -NORCO 325 MG-51 TAB PO; +POTA10TA10 PO; +PRED20TA6 PO; -PREDNISONE20 M1 PO; +RANI-451 PO; -RANITIDINE 150150 MG PO; -SYNTHROID0.025 MG PO; +[UNRECOGNIZED DRUG - CODE] PO
[2016-05-26 21:02] VITALS: BP 106/77
[2016-05-26] MEDS ORDERED: RANI-451 PO (21:10)
[2016-05-26] MEDS ORDERED: MAG400 GT (21:10)
--- NOTE | 2016-05-26 21:49 | NUR ---
PT TAKEN TO BED 3
--- NOTE | 2016-05-26 21:57 | NUR ---
45 Y/O M W/C/O CHEST PAIN, N/V AND SOB X 2 DAYS. PT ON END USER CONSULTANT SAT 98% IN RA, TACHY 128. PT STATES HAS A HX OF CHF. ER AWARED.
[2016-05-26] MEDS ORDERED: NITROGLYCERIN 2% 1 GM PKT TP ONE (22:25)
[2016-05-26] MEDS ORDERED: MORPHINE SULFATE 4 MG/ML SYR IVP ONE (22:25)
[2016-05-26] MEDS ORDERED: ASPIRIN 325 MG TAB PO ONE (22:25)
[2016-05-26] MEDS ORDERED: ONDANSETRON 4 MG/2 ML VIAL IVP ONE (22:35)
[2016-05-26] MEDS ORDERED: ONDANSETRON 4 MG/2 ML VIAL ONE (22:41)
[2016-05-26 22:48] LABS: MEAN CORPUSCULAR HEMOGLOBIN 20 pg (27-31); MEAN CORPUSCULAR HGB CONC 29 g/dL (33-37); MEAN CORPUSCULAR VOLUME 68 fL (80-94); PLATELET COUNT (AUTO) 425 K/uL (140-450); RED BLOOD CELL COUNT(AUTO) 4.57 MIL/uL (4.20-6.10); RED CELL DISTRIBUTION WIDTH 16.4 % (11.6-13.7)
[2016-05-26 23:02] LABS: AMPHETAMINE, URINE NEG. ng/ml (NEG <=1000); BARBITURATE, URINE NEG. ng/ml (NEG <=200); BENZODIAZEPINE, URINE NEG. ng/mL (NEG <=200); CANNABINOID, URINE POS. ng/mL (NEG <=50); COCAINE, URINE NEG. ng/mL (NEG <=300); OPIATE, URINE POS. ng/mL (NEG <=2000); PHENCYCLIDINE SCREEN,URINE NEG. ng/mL (NEG <=25)
[2016-05-26 23:04] LABS: CHOL/HDL RATIO 4.6 (1-4.5)
[2016-05-26 23:07] LABS: ALBUMIN 2.8 g/dL (3.4-5.0); CARBON DIOXIDE 29.2 mmol/L (21-32); CREATININE 2.5 mg/dL (0.6-1.3); POTASSIUM 4.2 mmol/L (3.5-5.1); TOTAL BILIRUBIN 1.1 mg/dL (0.0-1.0); TOTAL PROTEIN, SERUM 6.7 g/dL (6.4-8.2)
[2016-05-26 23:12] LABS: CREATINE KINASE MB 1.2 ng/mL (0-3.6); TROPONIN I 0.058 ng/mL (0.00-0.06)
[2016-05-26 23:14] LABS: BAND % (MANUAL) 2 % (0-8); LYMPHOCYTES % (MANUAL) 18 % (20-46); MONOCYTES % (MANUAL) 9 % (5-12); NEUTROPHILS % (MANUAL) 71 (43-65)
--- NOTE | 2016-05-26 23:55 | NUR ---
Dr. Willis evaluating patient at bedside.
[2016-05-27] MEDS ORDERED: FUROSEMIDE 40 MG/4 ML VIAL IVP SCH (00:15)
[2016-05-27] MEDS ORDERED: ACETAMINOPHEN 325 MG TAB PO PRN (00:40)
[2016-05-27] MEDS ORDERED: LORazepam 2 MG/ML VIAL IVP PRN (00:40)
[2016-05-27] MEDS ORDERED: ONDANSETRON 4 MG/2 ML VIAL IVP PRN (00:40)
--- NOTE | 2016-05-27 00:48 | NUR ---
Patient will be admitted to care of DR. OSMAN. Admited to TELEMETRY. Will go to room11 A. Belongings list completed. Report to PENNY BENITEZ.
[2016-05-27] MEDS ORDERED: MORPHINE SULFATE 10 MG/ML SYR IVP ONE (00:55)
--- NOTE | 2016-05-27 01:17 | NUR ---
PT TRASPORTED TO TELEMETRY VIA IKE, TRANSMISSION SUPERVISOR IN BED. ACCOMPANIED BY MARY RN, AND ROMRAIO, EMT. NO S/S OF DISTRESS ON TRASPORT.
[2016-05-27 01:20] VITALS: BP 107/77
--- NOTE | 2016-05-27 01:20 | NUR ---
ADMITTED A 45 M FROM ER, TELE PT. CAME BY IKE. WITH PROBLEM OF CHEST PAIN, SOB, TACHYCARDIA AND VOMITING. AWAKE,ALERT AND ORIENTED X4. AMBULATORY. NO C/O ANY PAIN AT THIS TIME. MEDICATED IN ER PRIOR TO ADMIT TO THE FLOOR. HAS HL ON THE RT FA#[phone]. CLEAR AND PATENT. LT LOWER LEG HAS SCABS FROM OLD SCRATCHES. AND SOME COLD SORES ON THE SIDE OF MOUTH AND RT SIDE OF NOSE. ALMOST DRY. PLAN OF CARE DISCUSSED . CALL LIGHT PLACED WITHIN EASY REACH. WILL CONTINUE TO MONITOR.
--- NOTE | 2016-05-27 03:30 | NUR ---
CALLED ADMITTING FOR PT HAS MONEY TO BE PUT IN THE SAFE.
[2016-05-27 04:34] VITALS: BP 118/79
[2016-05-27] MEDS: HYDROcodone/APAP 5/325 MG 1 TAB TAB PO PRN ×3 (05:27→20:25)
[2016-05-27] MEDS: LEVOTHYROXINE 0.025 MG TAB PO SCH (06:23)
--- NOTE | 2016-05-27 06:55 | NUR ---
CALLED ADMITTING AGAIN FOR PT MONEY NEED TO BE KEPT ON THE SAFE. THEY WILL COME THIS AM.
--- NOTE | 2016-05-27 07:04 | NUR ---
PT INSISTED ON TAKING SHOWER FOR HE SAID SKIN IS ITCHING. PENNY SCOTTMINING MACHINERY ASSEMBLER. MADE AWARE AND PT ABLE TO HAVE SHOWER .
--- NOTE | 2016-05-27 07:15 | NUR ---
ADMITTING PERSON TOGETHER WITH SECURITY CAME AND TOOK MONEY TO SAFE.
--- NOTE | 2016-05-27 07:35 | NUR ---
ALL HOME MEDS BOTTLES TO BE SEND TO PHARMACY. PT AGREED. ENDORSED PT IN STABLE CONDITION TO AM NURSE.
--- NOTE | 2016-05-27 07:36 | NUR ---
RECEIVED REPORT FROM PENNY BENITEZ. PT IS AAOX4. PT ON ROOM AIR WITH NO S/S OF DISTRESS NOTED. IV TO RIGHT FA #[id number], PATENT AND INTACT. EDEMA NOTED TO BLE. NO N/V OR PAIN INDICATED. ALL SAFETY PRECAUTIONS IN PLACE, SIDE RAILSX2, BED IN LOW POSITION, AND CALL LIGHT WITHIN REACH. WILL CONTINUE TO MONITOR.
--- NOTE | 2016-05-27 07:47 | NUR ---
AWAKE AND ALERT RESPONSIVE TO ACQUISITION LEAD VERBAL COMMANDS IN HFW POSITION PATIENT C/O SOB PATIENT ASSESSMENT COMPLETED HHN PRN THERAPY GIVEN AT THIS TIME TOLERATED WELL WITHOUT INCIDENT
[2016-05-27] MEDS: ALBUTEROL 0.083% 2.5 MG/3 ML NEBU IH PRN ×4 (07:49→17:10)
[2016-05-27 08:00] VITALS: BP 119/78
[2016-05-27] MEDS: ENOXAPARIN 40 MG/0.4 ML SYR SUBQ SCH (08:42)
[2016-05-27] MEDS: POTASSIUM CHLORIDE 10 MEQ TABER PO SCH (08:43)
[2016-05-27] MEDS: FUROSEMIDE 40 MG/4 ML VIAL IVP SCH ×2 (08:45→20:20)
[2016-05-27] MEDS: ASPIRIN 325 MG TAB PO SCH (08:45)
[2016-05-27] MEDS ORDERED: ATORVASTATIN 80 MG TAB PO SCH (09:00)
[2016-05-27] MEDS ORDERED: PNEUMOCOCCAL VACCINE 23 MCG/0.5 ML VIAL IMVAC SCH (09:00)
[2016-05-27] MEDS ORDERED: ISONIAZID 100 MG TAB PO SCH (09:00)
[2016-05-27] MEDS ORDERED: INFLUENZA VIRUS VACCINE QUAD 0.5 ML SYR IMVAC SCH (09:00)
[2016-05-27] MEDS ORDERED: CARVEDILOL 3.125 MG TAB PO SCH (09:00)
--- NOTE | 2016-05-27 09:03 | NUR ---
PT TOLERATED MEDS WELL. BP 119//78, HR 115. PT C/O NAUSEA AND ANXIETY. ADMINISTERED ZOFRAN AND ATIVAN ORDERED. WILL CONTINUE TO MONITOR. Addendum: 05/27/16 at 1204 by Aundrea Abreu RN PT REFUSED ISONIAZID, PT STATED HE WAS ALREADY COMPLETED THE TREATMENT.
--- NOTE | 2016-05-27 09:06 | NUR ---
PATIENT HAS BEEN SCREENED AND CATEGORIZED HIGH NUTRITION RISK. PATIENT WILL BE SEEN WITHIN 1-2 DAYS OF ADMISSION. 05/27/16-05/28/[address]
--- NOTE | 2016-05-27 09:30 | NUR ---
RECEIVED REPORT FROM DAY SHIFT RN, PATIENT IS AAOX4 SITTING AT THE SIDE OF THE BED ON ROOM AIR, NO SOB OR SIGN OF DISTRESS AT THIS TIME. SKIN CHECK, PATIENT HAS SCAB TO LOWER LEFT LEG, NOTED 2+ PITTING EDEMA TO BLE. IV TO RFA PATENT AND INTACT, SALINE LOCKED. DISCUSSED PLAN OF CARE WITH PATIENT, PATIENT VERBALIZED UNDERSTANDING, CALL LIGHT WITH WITHIN REACH, WILL CONTINUE TO MONITOR. Addendum: 05/28/16 at 0339 by Claudia Johnson RN WRONG TIME.
--- NOTE | 2016-05-27 09:36 | NUR ---
CM NOTE INITIAL REVIEW FAXED TO [facility] / FAX# [phone], ATTN: [facility] #[phone]
--- NOTE | 2016-05-27 09:41 | NUR ---
REVIEWED CXR IMPRESSION DATED
--- NOTE | 2016-05-27 10:00 | NUR ---
PT SLEEPING, NO DISTRESS NOTED.
[2016-05-27 12:00] VITALS: BP 115/80
--- NOTE | 2016-05-27 12:03 | NUR ---
VSS. WILL CONTINUE TO MONITOR.
--- NOTE | 2016-05-27 12:35 | NUR ---
TALKED TO DR COLUNGA, ALEJANDRA DENNEY ON PT'S CONDITION. UNKNOWN IF DR COLUNGA WILL SEE PT TODAY.
--- NOTE | 2016-05-27 13:46 | NUR ---
PATIENT SLEEPING NO DISTRESS NOTED AT THIS TIME.
--- NOTE | 2016-05-27 14:15 | NUR ---
PAGED DR OSMAN, AWAITING CALLBACK.
--- NOTE | 2016-05-27 14:19 | NUR ---
TALKED TO DR OSMAN, RECEIVED TELEPHONE ORDER FOR 2MG OF MORPHINE Q4HR/PRN FOR PAIN. WILL FOLLOW UP ON ORDERS.
[2016-05-27] MEDS ORDERED: MORPHINE SULFATE 2 MG/ML SYR IVP PRN (14:20)
--- NOTE | 2016-05-27 15:20 | NUR ---
TALKED TO DR DAWSON MD AWARE OF PT CURRENT BP 91/71 HR 103, TO MODIFY ORDERS. WILL FOLLOW UP ON ORDERS. Addendum: 05/27/16 at 1541 by Aundrea Abreu RN MADE AWARE OF PT COMPLETED TREATMENT FOR ISONIAZID, AND PT'S DECREASED SODIUM AT 132.
--- NOTE | 2016-05-27 15:49 | NUR ---
DR OSMAN IN TO SEE PT.
--- NOTE | 2016-05-27 15:54 | NUR ---
PROFILE SAW SETUP OPERATOR CALLED TO BEDSIDE BY CHEMO/RN TO ASSESS PATIENT FOR SOB AWAKE AND ALERT SITTING ON LEFT SIDE OF BED PROXIMAL TO DOOR C/O PAIN WITH ANXIETY PATIENT NO SIGNS OF SOB NOTED REQUESTING HHN PRN THERAPY AFTER 2 MINUTES PATIENT NOW REFUSING HHN PRN THERAPY RESPIRATORY DRUG NOT GIVEN (WASTED) CHEMO/RN AWARE OF REFUSAL SATURATION 99% ON ROOM AIR HR 109 RR 20 BREATH SOUNDS CLEAR BILATERAL WITH GOOD CHEST RISE
[2016-05-27 16:00] VITALS: BP 91/71
--- NOTE | 2016-05-27 16:00 | NUR ---
PER DR OSMAN, PT CANNOT HAVE INTRAVENOUS PAIN MEDICATION DUE TO DECREASED BLOOD PRESSURE. PT COMPLAINING OF 6/10 PAIN. TALKED TO PT REGARDING NORCO FOR PAIN, PT REFUSED STATING THE PAIN MEDICATION DOES NOT WORK. PT REQUESTING TO SPEAK TO CHARGE NURSE. WILL NOTIFY CHARGE NURSE.
--- NOTE | 2016-05-27 16:10 | NUR ---
CHARGE NURSE-DEBBIE IN TO SEE PT. TALKED TO PT, PT CONTINUED TO SAY HE NEEDS IV PAIN MEDICATION. PT EDUCATED ON LOW BLOOD PRESSURE, AND CAN ONLY HAVE NORCO FOR PAIN AT THIS TIME. PT REQUESTED TO TALK TO DIRECTOR MARKET INTELLIGENCE, WILL NOTIFY DIRECTOR MARKET INTELLIGENCE.
--- NOTE | 2016-05-27 16:16 | NUR ---
SIZE STAMPER-ALETHA IN TO SEE PT. PT EDUCATED ON TAKING NORCO. PT AGREED TO TAKE NORCO AND SEE IF IT HELPS WITH THE PAIN. WILL ADMINISTER NORCO ORDERED.
--- NOTE | 2016-05-27 16:30 | NUR ---
TALKED TO RADIOLOGY, PER RADIOLOGY US OF THE CHEST NEEDS TO ORDERED AND COMPLETED TO DETERMINE IF PATIENT QUALIFIES FOR US GUIDED THORACENTESIS. WILL PAGE DR OSMAN.
--- NOTE | 2016-05-27 16:32 | NUR ---
BP 96/60, HR 105. PT C/O 11/21 PAIN. ADMINISTERED NORCO ORDERED. PT TOLERATED WELL. WILL CONTINUE TO MONITOR.
--- NOTE | 2016-05-27 16:34 | NUR ---
PAGED DR OSMAN, AWAITING CALLBACK.
--- NOTE | 2016-05-27 17:03 | NUR ---
PT STATED HE IS SOB, TALKED TO RESPIRATORY THERAPIST. RT TO SEE PT.
--- NOTE | 2016-05-27 18:30 | NUR ---
RECEIVED CALL BACK FROM DR KELLY, BUTCHER HEAD FOR DR OSMAN. JUANJO TO PLACE ORDER FOR US OF THE CHEST TO SEE IF PT QUALIFIES FOR US GUIDED THORACENTESIS.
--- NOTE | 2016-05-27 19:30 | NUR ---
RECEIVED REPORT FROM DAY SHIFT RN, PATIENT IS AAOX4 SITTING AT THE SIDE OF THE BED ON ROOM AIR, NO SOB OR SIGN OF DISTRESS AT THIS TIME. SKIN CHECK, PATIENT HAS SCAB TO LOWER LEFT LEG, NOTED 2+ PITTING EDEMA TO BLE. IV TO RFA PATENT AND INTACT, SALINE LOCKED. DISCUSSED PLAN OF CARE WITH PATIENT, PATIENT VERBALIZED UNDERSTANDING, CALL LIGHT WITH WITHIN REACH, WILL CONTINUE TO MONITOR.
--- NOTE | 2016-05-27 19:30 | NUR ---
ENDORSED CARE TO PENNY RIVERA. PT IN STABLE CONDITION.
[2016-05-27 20:00] VITALS: BP 97/76
--- NOTE | 2016-05-27 20:25 | NUR ---
PM MEDS ADMINISTERED, PATIENT TOLERATED WELL, PT REFUSED LASIX. CALL LIGHT WITHIN REACH, WILL CONTINUE TO MONITOR.
--- NOTE | 2016-05-27 22:59 | NUR ---
1999 PT WILL CALL IF HE NEEDS HHNTX. BS ARE CLEAR AND ROOM AIR SAT 100% NO SOB NOTED
--- NOTE | 2016-05-27 23:12 | NUR ---
PATIENT STATED HE IS HAVING SOB, PATIENT IS SITTING ON EDGE OF BED, NO SOB SEEMS TO BE APPARENT. VITALS STABLE BP 104/69, HR 100 O2 99% ON ROOM AIR AND RR 16. PATIENT STATING [employer] IS NOT WORKING FOR PAIN, ASKING FOR IV PAIN MEDS, PER REPORT GIVEN BY DAY SHIFT RN STATED D/T PATIENTS LOW BP, PATIENT CAN NOT HAVE AND IV PAIN MEDICATIONS, PATIENT IS AWARE. AND VERBALIZED UNDERSTANDING, CALL LIGHT WITHIN REACH. WILL CONTINUE TO MONITOR.
[2016-05-28] VITALS: BP 104/69
--- NOTE | 2016-05-28 00:15 | NUR ---
VITAL SIGNS STABLE, PATIENT RESTING IN BED, PROVIDED WITH HOT CUP OF TEA, CALL LIGHT WITHIN REACH. WILL CONTINUE TO MONITOR.
--- NOTE | 2016-05-28 02:15 | NUR ---
PATIENT SLEEPING, NO SOB OR SIGN OF DISTRESS AT THIS TIME, CALL LIGHT WITHIN REACH. WILL CONTINUE TO MONITOR.
--- NOTE | 2016-05-28 03:46 | NUR ---
ASSISTED PATIENT UP TO RESTROOM, RECONNECTED BACK TO TELE MONITOR, CALL LIGHT WITHIN REACH. WILL CONTINUE TO MONITOR.
[2016-05-28 04:00] VITALS: BP 95/65
[2016-05-28] MEDS: HYDROcodone/APAP 5/325 MG 1 TAB TAB PO PRN ×3 (04:50→09:09)
--- NOTE | 2016-05-28 05:07 | NUR ---
PATIENT C/O PAIN TO ABDOMEN, ADMINISTERED ONE NORCO, PATIENT COMPLAINED HE WANTED THE TWO TABLETS. EXPLAINED TO PATIENT HE STATED HIS STOMACH HURT A LITTLE AND FOR MODERATE PAIN HE GETS ONE TABLET, PATIENT ASKED TO SPEAK TO CHARGE NURSE, CHARGE NURSE SONIA SPOKE WITH PATIENT AND GAVE OKAY TO GIVE THE SECOND NORCO. CALL LIGHT WITHIN REACH. WILL CONTINUE TO MONITOR.
[2016-05-28 05:54] LABS: HEMATOCRIT 33.4 % (36-52); HEMOGLOBIN 10.2 g/dL (12.0-18.0); MEAN CORPUSCULAR HEMOGLOBIN 21 pg (27-31); MEAN CORPUSCULAR HGB CONC 31 g/dL (33-37); MEAN CORPUSCULAR VOLUME 68 fL (80-94); PLATELET COUNT (AUTO) 417 K/uL (140-450); RED BLOOD CELL COUNT(AUTO) 4.93 MIL/uL (4.20-6.10); RED CELL DISTRIBUTION WIDTH 16.9 % (11.6-13.7); WHITE BLOOD COUNT (AUTO) 5.7 K/uL (4.8-10.8)
[2016-05-28 06:29] LABS: ANION GAP 13.7 (8-16); CALCIUM 8.5 mg/dL (8.5-10.1); CARBON DIOXIDE 28.5 mmol/L (21-32); CREATININE 2.8 mg/dL (0.6-1.3); POTASSIUM 4.2 mmol/L (3.5-5.1); TOTAL BILIRUBIN 1.5 mg/dL (0.0-1.0); TOTAL PROTEIN, SERUM 6.9 g/dL (6.4-8.2)
[2016-05-28] MEDS ORDERED: ENOXAPARIN 30 MG/0.3 ML SYR SUBQ SCH (06:30)
[2016-05-28 06:33] LABS: ANISOCYTOSIS 1+; EOSINOPHILS % (MANUAL) 1 % (0-4); HYPOCHROMASIA 1+; LYMPHOCYTES % (MANUAL) 22 % (20-46); MONOCYTES % (MANUAL) 7 % (5-12); NEUTROPHILS % (MANUAL) 70 (43-65); POIKILOCYTOSIS 1+
[2016-05-28 06:34] LABS: OVALOCYTES 1+
[2016-05-28] MEDS: LEVOTHYROXINE 0.025 MG TAB PO SCH (06:49)
--- NOTE | 2016-05-28 07:28 | NUR ---
ENDORSED PATIENT TO DAY SHIFT RN AT BEDSIDE, PATIENT IN STABLE CONDITION, PATIENT SLEEPING.
--- NOTE | 2016-05-28 07:29 | NUR ---
RECEIVED REPORT FROM PENNY RIVERA. PT IS AAOX4, PT ON ROOM AIR WITH NO S/S OF DISTRESS NOTED. IV TO RIGHT FA #[id number], PATENT AND INTACT. ABRASION NOTED TO LEFT LOWER LEG. NO N/V OR PAIN INDICATED. ALL SAFETY PRECAUTIONS IN PLACE, SIDE RAILSX2, BED IN LOW POSITION, AND CALL LIGHT WITHIN REACH. WILL CONTINUE TO MONITOR.
--- NOTE | 2016-05-28 07:44 | NUR ---
RECEIVED 0 RESP DISTRESS NOTED PT AWAKE ALERT HHN RX NOT INDICATED AT THIS TIME
[2016-05-28 08:00] VITALS: BP 119/78
[2016-05-28] MEDS: ENOXAPARIN 40 MG/0.4 ML SYR SUBQ SCH (09:07)
[2016-05-28] MEDS: FUROSEMIDE 40 MG/4 ML VIAL IVP SCH (09:10)
[2016-05-28] MEDS: ASPIRIN 325 MG TAB PO SCH (09:10)
[2016-05-28] MEDS: POTASSIUM CHLORIDE 10 MEQ TABER PO SCH (09:10)
--- NOTE | 2016-05-28 09:19 | NUR ---
PT C/O 08/21 PAIN. VSS. PT TOLERATED MEDS WELL. ADMINISTERED NORCO ORDERED. WILL CONTINUE TO MONITOR.
--- NOTE | 2016-05-28 09:39 | NUR ---
FAXED CONCURRENT REVIEW TO [facility] [phone] PHONE [facility] [phone]
[2016-05-28 12:00] VITALS: BP 99/78
--- NOTE | 2016-05-28 12:30 | NUR ---
PT C/O OF SOB, RT CALLED TO BEDSIDE.
--- NOTE | 2016-05-28 12:44 | NUR ---
Responed to patients room approx around 1235 hours to check patient. Patient is on room air spo2 98 and heart rate 118 bpm. Resp rate elevated 18. Patient breath sounds clear diminished. Patient does not appear to be in respiratory distress and no shortness of breath noticed. No resp tx needed at this time based on RT assessment. Notified RN Aundrea regarding patients current condition. Pt will be monitored no further action at this time.
[2016-05-28] MEDS: ALBUTEROL 0.083% 2.5 MG/3 ML NEBU IH PRN (13:59)
--- NOTE | 2016-05-28 14:00 | NUR ---
PT C/O SOB, RT CALLED TO PT'S BEDSIDE.
--- NOTE | 2016-05-28 14:02 | NUR ---
pt called for hhn no resp distress noted breath sounds mostly clear t/o rx given no ill effects noted
[2016-05-28] MEDS ORDERED: DIGOXIN 0.25 MG/ML AMP IV SCH ×2 (14:30→15:30)
--- NOTE | 2016-05-28 15:56 | NUR ---
BP 119/51, HR 106. ADMINISTERED DIGOXIN ORDERED. PT TOLERATED WELL. WILL CONTINUE TO MONITOR.
--- NOTE | 2016-05-28 15:59 | NUR ---
05/28/16 RD INITIAL ASSESSMENT COMPLETED PLEASE REFER TO NUTRITION ASSESSMENT UNDER CARE ACTIVITY FOR ESTIMATED NUTRITIONAL NEEDS. RD RECOMMENDATIONS: 1. CONTINUE CARDIAC DIET TOLERATED. 2. RD TO ADD HEALTH SHAKES BID FOR AN ADDITIONAL 600 KCAL AND 18 GM OF PROTEIN PER DAY D/T RECENT WT LOSS AND POOR PO 3. ENCOURAGE INCREASED PO INTAKES 4. RD WILL F/U 3-5 DAYS; MODERATE RISK. CHE GREGG RD
[2016-05-28 16:00] VITALS: BP 119/51
--- NOTE | 2016-05-28 16:00 | NUR ---
TALKED TO PT, PT TO BE DISCHARGED. PT CLEARED TO BE DISCHARGED BY DR COLUNGA, PER MD CANCEL SECOND DOSE OF DIGOXIN IF PT IS DISCHARGED TODAY.
[2016-05-28 16:42] VITALS: BP 106/79
[2016-05-28] MEDS ORDERED: FURO-570 PO (16:42)
--- NOTE | 2016-05-28 17:08 | NUR ---
PT REFUSING TO BE DISCHARGED. AWARE. Addendum: 05/28/16 at 1709 by Aundrea Abreu RN DR DAWSON [place].
--- NOTE | 2016-05-28 17:30 | NUR ---
DR OSMAN IN TO SEE PT, PT CONTINUES TO REFUSE TO BE DISCHARGED. PT HAS BEEN MEDICALLY CLEARED. EXPLAINED IN DETAIL, PT SYMPTOMS DUE TO ANXIETY. EXPLAINED TO PT, PT CAN REFER TO CLINIC AND BE REFERRED TO A PSYCHIATRIST FOR HIS ANXIETY. PT HAS BEEN MEDICALLY CLEARED BY CROTCH PIECE BASTER.
--- NOTE | 2016-05-28 17:50 | NUR ---
PT GIVEN $650 BY OPERATIONS AND MAINTENANCE TECHNICAN. PT ACCEPTED AND SIGNED OFF ON MONEY.
--- NOTE | 2016-05-28 18:32 | NUR ---
PT AGREED TO BE DISCHARGED, PT UNDERSTANDS SOB IS DUE TO ANXIETY. PT HAS BEEN MEDICALLY CLEARED. PT TO FOLLOW UP WITH CLINIC AND WILL FOLLOW UP WITH PSYCHIATRIST. PT PROVIDED WITH [facility] AND RESOURCE LIST, PT STATED HE WILL STAY IN A [facility], PROVIDED. NO DISTRESS NOTED AT THIS TIME.
--- NOTE | 2016-05-28 18:33 | NUR ---
PT HAS A TRUCK, HE DRIVE HIMSELF TO A [facility]. ADDITIONALLY, PT PROVIDED WITH BUS PASS.
--- NOTE | 2016-05-28 18:39 | NUR ---
PT HAS BEEN DISCHARGED. ALL PAPERWORK SIGNED. ALL QUESTIONS ANSWERED. ALL BELONGINGS AND PRESCRIPTION IN PT POSSESSION. IV DC'ED WITH CANNULA INTACT. WRISTBANDS REMOVED AND TELE MONITOR REMOVED. NOTIFIED KITCHEN STEWARDESS. PT WHEELED OUT OF UNIT VIA WHEELCHAIR. PT AMBULATED WITH STEADY GAIT. PT IN STABLE CONDITION.
== END 2016-05-28 18:40 | disposition home or self-care (01) | DRG 194 ==
LOC: MED 20:56 → MTU 05-27 00:41
PROVIDERS: ADMIT Hospitalist; ATTEND Hospitalist
DX: I13.0 Hypertensive heart and chronic kidney disease with heart failure and stage 1 through stage 4 chronic kidney disease, or unspecified chronic kidney disease (principal); I42.0 Dilated cardiomyopathy; E87.1 Hypo-osmolality and hyponatremia; I50.43 Acute on chronic combined systolic (congestive) and diastolic (congestive) heart failure; N18.9 Chronic kidney disease, unspecified; I25.5 Ischemic cardiomyopathy; F15.10 Other stimulant abuse, uncomplicated; J45.909 Unspecified asthma, uncomplicated; E03.9 Hypothyroidism, unspecified; E78.5 Hyperlipidemia, unspecified; Z76.5 Malingerer [conscious simulation]; F19.10 Other psychoactive substance abuse, uncomplicated; Z87.891 Personal history of nicotine dependence
CPT/HCPCS: 36415; 71010; 76604; 80053; 80305; 82550; 82553; 83735; 83880; 84484; 85025; 85379; 87081; 93005; 94640; J1160; J1650; J1940; J2060; J2270; J2405; J7613; Q0092

== ENCOUNTER 2016-07-04 01:04 | Emergency (ER) | payer OTHER ==
[~2016-07-04] VITALS: Ht 180.3 cm; Wt 83.1 kg
[~2016-07-04 01:04] MED LIST changes: -ASPI325T49 PO; +ASPIRIN325 M2 PO; -ATOR80TA27 PO; +ATORVASTATIN CA80 MG PO; +AZULFIDINE500 M1 PO; +CARAFATE1 GM PO; -CARV3.122 PO; +CARVEDILOL3.125 MG PO; +COUMADIN7.5 MG PO; +DOCUSATE SODIU100 M4 PO; -FURO-570 PO; +FUROSEMIDE20 MG PO; +ISONIAZID300 M1 PO; +K-DUR10 MEQ PO; +KLOR-CON M1010 MEQ PO; +LASIX40 MG PO; +LASIX80 MG PO; -LEVO0.0236 PO; +LEVOTHYROXIN0.025 M1 PO; +MAG-OX400 MG GT; +NORCO 10/325 MG1 TAB PO; +NORCO 325 MG-51 TAB PO; -POTA10TA10 PO; -PRED20TA6 PO; +PREDNISONE20 M1 PO; -RANI-451 PO; +RANITIDINE 150150 MG PO; +SYNTHROID0.025 MG PO; -[UNRECOGNIZED DRUG - CODE] PO
[2016-07-04 01:18] VITALS: BP 107/78
--- NOTE | 2016-07-04 02:17 | NUR ---
PT TAKEN TO BED 8
--- NOTE | 2016-07-04 02:20 | NUR ---
46 Y/O C/O RETAINING FLUIDS, OUT OF MEDS AT HOME. C/O NAUSEA AND GENERELIZED PAIN AT THE MOMENT . O2 SAT 99% RA. MED HX: CHRONS DISEASE AND CHF
--- NOTE | 2016-07-04 02:25 | NUR ---
Dr. Snider evaluating patient at bedside.
[2016-07-04] MEDS ORDERED: HYDROcodone/APAP 5/325 MG 1 TAB TAB PO ONE (02:40)
[2016-07-04] MEDS ORDERED: FUROSEMIDE 40 MG/4 ML VIAL IVP ONE (02:40)
--- NOTE | 2016-07-04 02:59 | NUR ---
X-Ray at bedside.
--- NOTE | 2016-07-04 03:40 | NUR ---
PT REFUSED LASIX IV, REQUESTED LASIX PO. ER NOTIFIED.
[2016-07-04] MEDS ORDERED: POTASSIUM CHLORIDE 10 MEQ TABER PO ONE (03:45)
[2016-07-04] MEDS ORDERED: FUROSEMIDE 40 MG TAB PO ONE (03:50)
[2016-07-04] MEDS ORDERED: FUROSEMIDE 40 MG TAB ONE (04:00)
[2016-07-04 04:13] VITALS: BP 121/78
--- NOTE | 2016-07-04 04:13 | NUR ---
Patient discharged with v/s stable. Written and verbal after care instructions given and explained. Patient alert, oriented and verbalized understanding of instructions. Ambulatory with steady gait. All questions addressed prior to discharge. ID band removed. Patient advised to follow up with PMD THIS WK OR RETURN TO ER IF CONDITION WORSENS. Rx of ATORVASTATIN, ASPIR-LOW, AND FUROSEMIDE given. Patient educated on indication of medication including possible reaction and side effects. Opportunity to ask questions provided and answered.
== END 2016-07-04 04:13 | disposition home or self-care (01) ==
LOC: MED 01:04
DX: Z76.0 Encounter for issue of repeat prescription (principal); I11.0 Hypertensive heart disease with heart failure; I50.9 Heart failure, unspecified; E87.6 Hypokalemia; M79.89 Other specified soft tissue disorders; R60.9 Edema, unspecified; K50.90 Crohn's disease, unspecified, without complications; E03.9 Hypothyroidism, unspecified
CPT/HCPCS: 36415; 71010; 80053; 82550; 82553; 83690; 84484; 85025; 93005; 99285; J1940

== ENCOUNTER 2016-07-29 21:43 | Emergency (ER) | payer OTHER ==
[~2016-07-29] VITALS: Ht 180.3 cm; Wt 79.4 kg
[~2016-07-29 21:43] MED LIST changes: +ASPI325T49 PO; -ASPIRIN325 M2 PO; +ATOR80TA27 PO; -ATORVASTATIN CA80 MG PO; -AZULFIDINE500 M1 PO; -CARAFATE1 GM PO; +CARV3.122 PO; -CARVEDILOL3.125 MG PO; -COUMADIN7.5 MG PO; -DOCUSATE SODIU100 M4 PO; +FURO-570 PO; -FUROSEMIDE20 MG PO; -ISONIAZID300 M1 PO; -K-DUR10 MEQ PO; -KLOR-CON M1010 MEQ PO; -LASIX40 MG PO; -LASIX80 MG PO; +LEVO0.0236 PO; -LEVOTHYROXIN0.025 M1 PO; -MAG-OX400 MG GT; +MAG400 GT; -NORCO 10/325 MG1 TAB PO; -NORCO 325 MG-51 TAB PO; -PREDNISONE20 M1 PO; +RANI-451 PO; -RANITIDINE 150150 MG PO; -SYNTHROID0.025 MG PO
[2016-07-29 22:03] VITALS: BP 120/65
--- NOTE | 2016-07-29 23:04 | NUR ---
PT TAKEN TO OF2
--- NOTE | 2016-07-29 23:23 | NUR ---
46Y/M PATIENT PRESENTS TO ED WITH REQUESTING FRO MEDS REFILL . PT STATES RUN OUT OF LASIX, NORCO . DENIES N/V/D; SKIN IS PINK/WARM/DRY, BLE +1 EDEMA WITH MILD REDNESS ; AAOX4 WITH EVEN AND STEADY GAIT; LUNGS CLEAR BL; HR EVEN AND REGULAR; PT DENIES ANY FEVER, CP, SOB, OR COUGH AT THIS TIME; PATIENT STATES PAIN OF 0/10 AT THIS TIME; VSS; ER MD MADE AWARE OF PT STATUS.
--- NOTE | 2016-07-29 23:39 | NUR ---
Dr. Keane evaluating patient
--- NOTE | 2016-07-29 23:55 | NUR ---
Patient discharged with v/s stable. Written and verbal after care instructions given and explained. Patient verbalized understanding. Ambulatory with steady gait. All questions addressed prior to discharge. Advised to follow up with PMD.
[2016-07-30] VITALS: BP 111/65
== END 2016-07-29 23:55 | disposition home or self-care (01) ==
LOC: MED 21:43
DX: Z76.0 Encounter for issue of repeat prescription (principal); R60.0 Localized edema; I50.9 Heart failure, unspecified; I10 Essential (primary) hypertension; E03.9 Hypothyroidism, unspecified
CPT/HCPCS: 99283